=== PATIENT | male | born 1995 | race African-American/Black ===

== ENCOUNTER 2022-06-09 09:07 | Emergency (ER) | payer OTHER ==
[2022-06-09] MEDS ORDERED: Ketorolac Tromethamine 30 MG/ML VIAL ONE (10:38)
[2022-06-09] MEDS ORDERED: HYDROcodone/Acetaminophen 5/325 mg Tablet ONE (10:39)
[2022-06-09] MEDS ORDERED: Cyclobenzaprine 10 MG TAB ONE (10:39)
== END 2022-06-09 11:45 | disposition home or self-care (01) ==
LOC: CSHERS 09:07
DX: S13.4XXA Sprain of ligaments of cervical spine, initial encounter (principal); M43.6 Torticollis; X50.1XXA Overexertion from prolonged static or awkward postures, initial encounter
CPT/HCPCS: 72125; 96372; J1885